=== PATIENT | female | born 1960 | race Two or more races ===

== ENCOUNTER → 2025-05-14 | Outpatient (CLI) | payer BC, SELFPAY ==
[2025-05-14 09:39] LABS: Basophils # (Auto) 0.1 Thou/mm3 (0.0-0.2); Basophils % (Auto) 1 % (0-2.5); Eosinophils # (Auto) 0.3 Thou/mm3 (0.0-0.5); Eosinophils % (Auto) 3 % (0-10); Hematocrit 39.7 % (36.0-46.0); Immature Granulocytes % (Auto) 0 % (0-0); Immature Granulocytes Auto 0.03 Thou/mm3 (0.00-0.00); Lymphocytes # (Auto) 2.4 Thou/mm3 (1.0-4.8); Lymphocytes % (Auto) 26 % (10-50); Mean Corpuscular HGB Conc 32.7 g/dl (31.0-37.0); Mean Corpuscular Hemoglobin 29.9 pg (25.0-35.0); Mean Corpuscular Volume 91 fL (80-100); Monocytes # (Auto) 0.6 Thou/mm3 (0.0-0.8); Monocytes % (Auto) 6 % (0-12); Neutrophils # (Auto) 5.8 Thou/mm3 (1.8-7.7); Neutrophils % (Auto) 64 % (37-80); Nucleated Red Blood Cell % 0 /100 WBC (0); Platelet Count 272 Thou/mm3 (140-440); RDW Standard Deviation 42.5 fL (36.4-46.3); Red Blood Count 4.35 Miln/mm3 (4.00-5.20); White Blood Count 9.2 Thou/mm3 (3.6-11.0)
[2025-05-14 09:56] LABS: Alanine Aminotransferase 35 U/L (10-49); Albumin, Serum 4.1 gm/dL (3.4-4.8); Albumin/Globulin Ratio 1.4 (1.2-2.2); Alkaline Phosphatase 68 U/L (46-116); Anion Gap 6 (7-16); Aspartate Amino Transferase 24 U/L (0-34); BUN/Creatinine Ratio 17 Ratio (12-20); Bilirubin,Total 0.5 mg/dL (0.3-1.2); Blood Urea Nitrogen 17 mg/dL (9-23); Calcium 9.5 mg/dL (8.3-10.6); Calcium (Corrected) 9.5 mg/dL (8.5-10.1); Carbon Dioxide 27.9 mMol/L (20.0-31.0); Cardiac Risk Estimate 3.9 RATIO (3.7-5.6); Chloride 108 mMol/L (98-107); Cholesterol 191 mg/dL (132-200); Globulin 2.9 gm/dL (2.3-3.5); Glucose 100 mg/dL (74-106); HDL Cholesterol 49 mg/dL (40-60); LDL Cholesterol,Calculated 111 mg/dL (0-130); Magnesium 2.1 mg/dL (1.6-2.6); Osmolality,Calculated 284 (275-295); Potassium 4.2 mMol/L (3.4-5.1); Sodium 142 mMol/L (136-145); Thyroid Stimulating Hormone 5.03 uIU/mL (0.55-4.78); Triglycerides 155 mg/dL (30-150); eGFR > 60 See Note
[2025-05-14 10:06] LABS: Glucose Estimated Average 105 mg/dL (80-131); Hemoglobin A1C 5.3 % Hgb (4.8-6.0)
[2025-05-14 10:11] LABS: Folate > 24.00 ng/mL (>5.38); Vitamin B12 682 pg/mL (211-911); Vitamin D 25 Hydroxy Total 28.5 ng/mL (7.3-40.2)
== END | disposition home or self-care (01) ==
LOC: COPL 08:31
PROVIDERS: PCP Family Medicine; Referring Provider Student in an Organized Health Care Education/Training Program; Visit Provider Student in an Organized Health Care Education/Training Program
DX: M79.10 Myalgia, unspecified site (principal); Z82.49 Family history of ischemic heart disease and other diseases of the circulatory system; R53.83 Other fatigue; R03.0 Elevated blood-pressure reading, without diagnosis of hypertension
CPT/HCPCS: 36415; 80053; 80061; 82306; 82607; 82746; 83036; 83735; 84443; 85025

== ENCOUNTER → 2025-06-01 | Outpatient (CLI) | payer BC, SELFPAY ==
--- NOTE | 2025-06-01 14:15 | XR_ITS ---
Examination: Screening digital mammography, bilateral Computer aided detection 3-D breast Tomosynthesis, bilateral Date and time of exam: June 01, 2025, 1348 hours Compared to mammograms dated to March 01, 2015 Indication: Screening Technique: Nonmagnified MLO, CC views of the breasts to been obtained, reconstructed from 3-D Tomosynthesis images. R2 computer aided detection program utilized for evaluation of suspicious masses and/or abnormal calcifications. 3-D Tomosynthesis images obtained. Findings: The breasts are heterogeneously dense, which may obscure small masses Stable nodule with calcifications upper left breast No interval suspicious masses Impression: BI-RADS category II: Benign Findings. Recommend 1 year follow-up mammogram.
== END | disposition home or self-care (01) ==
LOC: CDIM 13:39
PROVIDERS: Referring Provider Student in an Organized Health Care Education/Training Program; Visit Provider Student in an Organized Health Care Education/Training Program
DX: Z12.31 Encounter for screening mammogram for malignant neoplasm of breast (principal); R92.323 Mammographic fibroglandular density, bilateral breasts; R92.1 Mammographic calcification found on diagnostic imaging of breast
CPT/HCPCS: 77063; 77067

== ENCOUNTER → 2025-06-07 | Outpatient (CLI) | payer BC, SELFPAY ==
[2025-06-07 08:58] LABS: Free T4 (Free Thyroxine) 1.08 ng/dL (0.89-1.76); Thyroid Stimulating Hormone 4.25 uIU/mL (0.55-4.78)
== END | disposition home or self-care (01) ==
PROVIDERS: PCP Student in an Organized Health Care Education/Training Program; Referring Provider Student in an Organized Health Care Education/Training Program; Visit Provider Student in an Organized Health Care Education/Training Program
DX: R94.6 Abnormal results of thyroid function studies (principal)
CPT/HCPCS: 36415; 84439; 84443

== ENCOUNTER → 2025-07-03 | Outpatient (CLI) | payer BC, SELFPAY ==
--- NOTE | 2025-07-03 14:30 | XR_ITS ---
Examination: Ultrasound soft tissue abdomen anteriorly TECHNIQUE: Grayscale sonographic images soft tissue anterior abdomen INDICATIONS: Palpable lump in the navel region 3 months, history surgery in the abdomen 3 years ago Date and time: July 03, 2025 1242 hours FINDINGS: Irregular cystic structure with internal echoes, tubular posterior to the naval and anterior to the surgical scar, 2.8 x 1.9 x 2.6 cm IMPRESSION: Cystic mass at the area concern anterior abdomen, recommend CT scan abdomen pelvis post intravenous contrast follow-up
== END | disposition home or self-care (01) ==
PROVIDERS: PCP Student in an Organized Health Care Education/Training Program; Referring Provider Student in an Organized Health Care Education/Training Program; Visit Provider Student in an Organized Health Care Education/Training Program
DX: R19.09 Other intra-abdominal and pelvic swelling, mass and lump (principal)
CPT/HCPCS: 76705

== ENCOUNTER → 2025-07-12 | Outpatient (CLI) | payer BC, SELFPAY ==
--- NOTE | 2025-07-12 14:54 | XR_ITS ---
Examination: Lumbar spine, 5 views Technique: Lumbar spine AP, lateral, coned lateral lower lumbar spine, bilateral obliques 5 views Exam date and time: July 12, 2025, 1540 hours INDICATIONS: Low back pain beginning one year ago FINDINGS: Severe osteopenia Moderate diffuse facet arthropathy No lumbar fracture Mild disc narrowing L5-S1 No spondylolisthesis IMPRESSION: Mild disc narrowing L5-S1
--- NOTE | 2025-07-12 14:54 | XR_ITS ---
Examination: Shoulder bilateral, 6 views Technique: Shoulder AP internal rotation, AP external rotation, Y view each shoulder total 6 views Exam date and time :July 12, 2025 1540 hours INDICATIONS: Bilateral shoulder pain several years. FINDINGS: Severe bilateral osteopenia Bilateral moderate narrowing glenohumeral joints No shoulder fractures or dislocations IMPRESSION: Bilateral moderate narrowing glenohumeral joints
== END | disposition home or self-care (01) ==
PROVIDERS: PCP Student in an Organized Health Care Education/Training Program; Referring Provider Student in an Organized Health Care Education/Training Program; Visit Provider Student in an Organized Health Care Education/Training Program
DX: M48.07 Spinal stenosis, lumbosacral region (principal)
CPT/HCPCS: 72110; 73030

== ENCOUNTER → 2025-08-08 | Outpatient (CLI) | payer BC, SELFPAY ==
[2025-08-08 10:01] LABS: Albumin, Serum 3.9 gm/dL (3.4-4.8); Anion Gap 8 (7-16); BUN/Creatinine Ratio 18 Ratio (12-20); Blood Urea Nitrogen 16 mg/dL (9-23); Calcium 9.3 mg/dL (8.3-10.6); Calcium (Corrected) 9.4 mg/dL (8.5-10.1); Carbon Dioxide 27.8 mMol/L (20.0-31.0); Chloride 107 mMol/L (98-107); Creatinine (Component) 0.9 mg/dL (0.6-1.3); Glucose 96 mg/dL (74-106); Osmolality,Calculated 286 (275-295); Phosphorous 3.3 mg/dL (2.4-5.1); Potassium 4.0 mMol/L (3.4-5.1); Sodium 143 mMol/L (136-145); eGFR > 60 See Note
== END | disposition home or self-care (01) ==
LOC: COPL 08:11
PROVIDERS: PCP Student in an Organized Health Care Education/Training Program; Referring Provider Student in an Organized Health Care Education/Training Program; Visit Provider Student in an Organized Health Care Education/Training Program
DX: R10.84 Generalized abdominal pain (principal); R19.00 Intra-abdominal and pelvic swelling, mass and lump, unspecified site
CPT/HCPCS: 36415; 80069

== ENCOUNTER → 2025-08-14 | Outpatient (CLI) | payer BC, SELFPAY ==
--- NOTE | 2025-08-14 10:00 | XR_ITS ---
Examination: CT abdomen with intravenous contrast CT pelvis with intravenous contrast 2-D coronal reconstructions 2-D sagittal reconstructions Date and time of exam:August 14, 2025, 1015 hours INDICATIONS: Intra-abdominal and pelvic swelling 1 year. CTDI: vol (mGy) 9.44 DLP: (mGycm) 537 Technique: Multiple axial sections of the abdomen and pelvis have been obtained. 64 slice high-resolution scanner used. 3 mm axial sections have been obtained, post intravenous injection 60 cc [id number] 2-D sagittal, coronal reconstructions obtained. Low dose protocols were performed. One or more of the following dose reduction techniques were used; automated exposure control, adjustment of the mA and/or KV according to patient size, use of iterative reconstruction technique. Findings: Fatty infiltration throughout the liver, focal liver or splenic lesions No gallstones No common hepatic or common bile duct stones. No pancreatic mass No stenosis Aorta is normal in size Normal appendix No bowel obstruction Colonic diverticulosis The wall of the sigmoid colon is mildly thickened and hyperemic There is scarring in the anterior pelvic wall but no hernia defect Urinary bladder intact Moderate stool in the rectum Prominent osteopenia IMPRESSION: Suspicious for nonspecific colitis involving sigmoid colon Scarring in the anterior pelvic wall and scarring internal to the umbilicus but no fluid-filled abscess or hematoma Consider repeat follow-up ultrasound soft tissue anterior pelvic and abdominal wall as clinically warranted
== END | disposition home or self-care (01) ==
PROVIDERS: PCP Student in an Organized Health Care Education/Training Program; Referring Provider Student in an Organized Health Care Education/Training Program; Visit Provider Student in an Organized Health Care Education/Training Program
DX: K63.9 Disease of intestine, unspecified (principal); R19.00 Intra-abdominal and pelvic swelling, mass and lump, unspecified site
CPT/HCPCS: 74177; A4649; Q9967

== ENCOUNTER 2025-08-17 11:05 | Day surgery (SDC) | payer BC, SELFPAY ==
[2025-08-17] VITALS (15 sets, daily range): BP systolic 115–194; BP diastolic 76–98; PULSE 52–88; RESP 13–20; TEMP 36.2–36.6; O2SAT 93–100; BMI 29.8
[2025-08-17] MEDS: fentaNYL CIT INJ 50 mCg/ML AMP 2ML (ASD USE ONLY) IVP ×2 (12:49→13:31)
[2025-08-17] MEDS: MIDAZOLAM INJ 1 MG/ML VIAL 2 ML (ASD USE ONLY) 2 MG IVP ×2 (12:49→13:31)
[2025-08-17] MEDS: BENZOCAINE 20% (Hurricaine) SPRAY 1 DOSE TOP (12:49)
[2025-08-17] MEDS: SODIUM CHLORIDE 0.9% 500 ML 500 ML 20 ML IV (12:53)
== END 2025-08-17 14:15 | disposition home or self-care (01) ==
PROVIDERS: PCP Student in an Organized Health Care Education/Training Program; Referring Provider Specialist; Visit Provider Specialist
PROC: 0DBE8ZX Excision of Large Intestine, Via Natural or Artificial Opening Endoscopic, Diagnostic (ICD-10-PCS; CPT 45380; principal; 2025-08-17 11:00)
PROC: (CPT 43239; 2025-08-17 11:00)
DX: K64.9 Unspecified hemorrhoids (principal); K57.30 Diverticulosis of large intestine without perforation or abscess without bleeding; R19.4 Change in bowel habit; R10.30 Lower abdominal pain, unspecified
CPT/HCPCS: 45378; A4649; C1769; J1200; J2250; J3010; J7999; A9270